=== PATIENT | female | born 1995 | race Hispanic/Latino ===

== ENCOUNTER 2018-11-18 15:59 | Emergency (ER) | payer MEDICAID ==
[2018-11-18 16:51] VITALS: PULSE 82; RESP 18; TEMP 98.2; O2SAT 97
--- NOTE | 2018-11-18 18:04 | ED PDOC ---
HPI: Abdomen Time Seen by Provider: 11/18/18 17:05 Chief Complaint (Nursing): Abdominal Pain Chief Complaint (Provider): abdominal pain History Per: Patient Additional Complaint(s): 23 y/o F with hx of depression and seasonal allergies who presents with vaginal spotting and pelvic cramping since this morning. Patient states that she noticed some spotting and abdominal cramping this morning after attempting to have intercourse. She finished her menstrual period 6 days ago. She has an IUD in place and is concerned that it may have moved. She has had an IUD for 2 years. Denies clots, dysuria, vaginal discharge, N/V, fever, chills, diarrhea. Had a BM this morning. Past Medical History Reviewed: Historical Data, Nursing Documentation, Vital Signs Vital Signs: Last Vital Signs Temp 98.2 F 11/18/18 16:49 Pulse 82 11/18/18 16:49 Resp 18 11/18/18 16:49 BP 101/64 11/18/18 16:49 Pulse Ox 97 11/18/18 16:49 - Medical History PMH: Depression Other PMH: seasonal allergies - Surgical History Surgical History: No Surg Hx - Family History Family History: States: Unknown Family Hx - Home Medications Home Medications: Ambulatory Orders Medication Instructions Recorded Ibuprofen [Motrin Tab] 600 mg PO Q6 PRN #7 tab 11/18/18 - Allergies Allergies/Adverse Reactions: Allergies Allergy/AdvReac Type Severity Reaction Status Date / Time amoxicillin Allergy ANAPHYLAXIS Verified 11/18/18 16:54 azithromycin Allergy ANAPHYLAXIS Verified 11/18/18 16:54 Cephalosporins Allergy ANAPHYLAXIS Verified 11/18/18 16:54 codeine Allergy ANAPHYLAXIS Verified 11/18/18 16:54 erythromycin base Allergy ANAPHYLAXIS Verified 11/18/18 16:54 Sulfa (Sulfonamide Allergy ANAPHYLAXIS Verified 11/18/18 16:54 Antibiotics) Review of Systems Constitutional: Negative for: Fever, Chills Respiratory: Negative for: Cough Gastrointestinal: Negative for: Nausea, Vomiting, Diarrhea, Constipation Genitourinary Female: Positive for: Vaginal Bleeding, Pelvic Pain. Negative for: Dysuria, Vaginal Discharge Physical Exam - Reviewed Nursing Documentation Reviewed: Yes Vital Signs Reviewed: Yes - Physical Exam Appears: Positive for: Non-toxic Skin: Positive for: Normal Color Neck: Positive for: Normal Cardiovascular/Chest: Positive for: Regular Rate, Rhythm Respiratory: Positive for: Normal Breath Sounds Gastrointestinal/Abdominal: Positive for: Normal Exam Pelvic Exam: Positive for: External Exam Normal, Bimanual Exam Normal. Negative for: Speculum Exam Normal (mild amount of dark blood in vaginal canal. IUD in place, cervix normal. Exam performed in the presence of RN client technologies specialist, Mabel. ) Back: Positive for: Normal Inspection. Negative for: L CVA Tenderness, R CVA Tenderness Neurologic/Psych: Positive for: Alert, Oriented - Laboratory Results Result Diagrams: 11/18/18 17:40 11/18/18 17:40 - ECG O2 Sat by Pulse Oximetry: 97 Medical Decision Making Medical Decision Making: Urine preg Urine dip Transvaginal U/S CBC, CMP Urine dip: Trace LE, normal nitrate. Urine culture ordered and sent. Transvaginal U/S: FINDINGS: UTERUS: Measures 6.7 x 3.9 x 3.1 cm. Anteverted. ENDOMETRIUM: Measures 4 mm in diameter. IUD appears in place. CERVIX: No cervical abnormality identified. RIGHT OVARY: Measures 3.8 x 3.1 X 1.8 cm. Blood flow is demonstrated. LEFT OVARY: Measures 3.0 x 1.8 x 1.4 cm. Blood flow is demonstrated. FREE FLUID: No significant free fluid noted. OTHER FINDINGS: None. IMPRESSION: IUD. Patient informed of U/S results and urine culture pending. Advised that she will be called if urine result is +. Patient to f/u with dextrine mixer for further assessment of Dysfunctional uterine bleeding. Disposition - Clinical Impression Clinical Impression: Pelvic pain - Patient ED Disposition Is Patient to be Admitted: No Counseled Patient/Family Regarding: Studies Performed, Diagnosis, Need For Followup, Rx Given - Disposition Referrals: Mery Murphy MD [Staff Provider] - Disposition: Routine/Home Disposition Time: 19:45 Condition: STABLE Additional Instructions: F/u with dextrine mixer for further assessment of abnormal vaginal bleeding and pelvic cramping if it persists. Take Tylenol or Ibuprofen for pain. Prescriptions: Ibuprofen [Motrin Tab] 600 mg PO Q6 PRN #7 tab PRN Reason: Pain, Moderate (4-7) Instructions: Acute Pelvic Pain (DC) Forms: [employer] (U[place]ayan) Print Language: SERBIAN
[2018-11-18 18:12] LABS: EOS # 0.1 K/uL (0.0-0.7); LYMPH # 1.6 K/uL (1.0-4.3); NEUT # 3.1 K/uL (1.8-7.0)
[2018-11-18 18:28] LABS: BLOOD UREA NITROGEN 14 mg/dl (7-17); GFR NON-AFRICAN AMERICAN > 60
[2018-11-18 18:30] LABS: CALCIUM 9.4 mg/dL (8.4-10.2)
--- NOTE | 2018-11-18 18:53 | US ---
Date of service: 11/18/2018 HISTORY: pelvic pain, dysfunctional uterine bleeding, IUD COMPARISON: None available. TECHNIQUE: Transvaginal pelvic ultrasound FINDINGS: UTERUS: Measures 6.7 x 3.9 x 3.1 cm. Anteverted. ENDOMETRIUM: Measures 4 mm in diameter. IUD appears in place. CERVIX: No cervical abnormality identified. RIGHT OVARY: Measures 3.8 x 3.1 X 1.8 cm. Blood flow is demonstrated. LEFT OVARY: Measures 3.0 x 1.8 x 1.4 cm. Blood flow is demonstrated. FREE FLUID: No significant free fluid noted. OTHER FINDINGS: None. IMPRESSION: IUD.
[2018-11-18 19:01] LABS: BASO % 0.8 % (0.0-2.0); EOS % 1.9 % (0.0-4.0); LYMPH % 29.7 % (20.0-40.0); MEAN CELL VOLUME 92.9 fl (81.0-99.0); MEAN CORPUSCULAR HEMOGLOBIN 31.6 pg (27.0-31.0); MONO # 0.4 K/uL (0.0-0.8); MONO % 8.4 % (0.0-10.0); NEUT % 59.2 % (50.0-75.0); RBC 4.13 Mil/uL (3.80-5.20); WHITE BLOOD COUNT 5.2 K/uL (4.8-10.8)
[2018-11-19 00:22] VITALS: BP 107/68
== END 2018-11-18 19:22 | disposition home or self-care (01) ==
LOC: H.ER 15:59
DX: R10.2 Pelvic and perineal pain (principal); N93.8 Other specified abnormal uterine and vaginal bleeding; Z88.1 Allergy status to other antibiotic agents